=== PATIENT | male | born 2000 | race American Indian/Alaskan Native ===

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

== ENCOUNTER 2018-04-01 12:11 | Emergency (ER) | payer SELFPAY ==
[2018-04-01 12:22] VITALS: BP 143/74
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
[2018-04-01] MEDS ORDERED: Ibuprofen 600 MG Tab PO ONE (14:03)
== END 2018-04-01 14:18 | disposition home or self-care (01) ==
LOC: DL.ED 12:11
DX: S39.012A Strain of muscle, fascia and tendon of lower back, initial encounter (principal); S80.02XA Contusion of left knee, initial encounter; V59.49XA Driver of pick-up truck or van injured in collision with other motor vehicles in traffic accident, initial encounter
CPT/HCPCS: 72100; 73562; 99285; A9270; 99283

== ENCOUNTER 2019-04-29 02:30 | Emergency (ER) | payer SELFPAY ==
[2019-04-29] MEDS ORDERED: Ciprofloxacin 0.3% Ophth Soln 5 ML Bottle ONE ×2 (02:31→02:54)
[2019-04-29 02:38] VITALS: BP 163/79; PULSE 91
[2019-04-29] MEDS ORDERED: Ketorolac 30 MG/ML SDV IM ONE (02:53)
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
== END 2019-04-29 03:17 | disposition home or self-care (01) ==
LOC: DL.ED 02:30
DX: H66.41 Suppurative otitis media, unspecified, right ear (principal)
CPT/HCPCS: 96372; 99282; 99283; A9270; J1885

== ENCOUNTER 2020-01-01 14:59 | Emergency (ER) | payer SELFPAY ==
[2020-01-01 15:27] VITALS: BP 138/88; PULSE 118
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
== END 2020-01-01 16:46 | disposition home or self-care (01) ==
LOC: DL.ED 14:59
DX: S69.91XA Unspecified injury of right wrist, hand and finger(s), initial encounter (principal); W22.8XXA Striking against or struck by other objects, initial encounter
CPT/HCPCS: 73130-RT; 99283-25

== ENCOUNTER 2021-07-14 10:14 | Emergency (ER) | payer SELFPAY ==
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
[2021-07-14 10:33] VITALS: BP 155/85; PULSE 99
--- NOTE | 2021-07-14 10:42 | CR ---
PROCEDURE INFORMATION: Exam: XR Right Shoulder Exam date and time: 07/14/2021 10:30 AM Age: 20 years old Clinical indication: Pain; Shoulder; Right; Additional info: RT shoulder injury TECHNIQUE: Imaging protocol: XR Right shoulder. Views: 2 or more views. COMPARISON: CR Shoulder Comp Rt 05/13/2015 7:11 PM FINDINGS: Bones/joints: Multiple views of the right shoulder demonstrate no evidence for fracture. There is normal mineralization and alignment. Joint spaces are well preserved. Soft tissues: Normal. IMPRESSION: 1. Normal appearance of the right shoulder.
== END 2021-07-14 10:58 | disposition home or self-care (01) ==
LOC: DL.ED 10:14
DX: S49.91XA Unspecified injury of right shoulder and upper arm, initial encounter (principal); L01.00 Impetigo, unspecified; W22.09XA Striking against other stationary object, initial encounter
CPT/HCPCS: 73030-RT; 99283

== ENCOUNTER 2022-02-13 11:36 | Emergency (ER) | payer SELFPAY ==
[2022-02-13] MEDS: Bacitracin Oint 1 GM U/D Packet TOP ONE (13:42)
[2022-02-13] MEDS: Diphtheria,Pertussis(Acell),Tetanus Vaccine 0.5 ML Syringe IM ONE (13:42)
== END 2022-02-13 13:54 | disposition home or self-care (01) ==
LOC: DL.ED 11:36
DX: S61.412A Laceration without foreign body of left hand, initial encounter (principal); Z23 Encounter for immunization; W26.0XXA Contact with knife, initial encounter; Y92.000 Kitchen of unspecified non-institutional (private) residence as the place of occurrence of the external cause
CPT/HCPCS: 90471; 90715; 99282-25